=== PATIENT | male | born 1940 | race Caucasian/White ===

== ENCOUNTER → 2017-03-19 | Day surgery (SDC) | payer MEDICARE ==
[~2017-03-19] VITALS: Ht 175.3 cm; Wt 104.3 kg
[~2017-03-19] MED LIST: ALBU18HF INH; ASCO100089 PO; ASCO1500 PO; CHOL200020 PO; CHOL200025 PO; CLAR10T PO; COU5 PO; FLONASE; FLUT16SP NS; FURO-3 PO; FURO40TA4 PO; GARL1000 PO; GARL10002 PO; LORA10CA9 PO; Lactated Ringer's 1,000 ML IV ONE; Lactated Ringer's 1,000 ML IV SCH; METO-272 PO; MOME13HF2 IH; MULT-1007 PO; MULT-544 PO; MetoCLOpramide 5 mg/mL 2 mL Inj IVPUSH PRN; NIAC500SA PO; OMEG100020 PO; Ondansetron 2 mg/mL 2 mL Inj IVPUSH PRN; PRAV80TA2 PO; PRV40T PO; Propofol 10,000 mCg/mL 20 mL Inj ONE; SILD50TA PO; TAMS0.4C29 PO; WARF5TAB7 PO; [UNRECOGNIZED DRUG - CODE] PO
[2017-03-19 13:10] VITALS: BP 164/95; PULSE 73; O2SAT 99
[2017-03-19 13:39] VITALS: BP 113/79; PULSE 62; RESP 14; O2SAT 97
[2017-03-19 13:54] VITALS: BP 122/79; PULSE 72; RESP 14; O2SAT 97
--- NOTE | 2017-03-19 14:06 | ENDO ---
[address] [address] ENDOSCOPY PROCEDURE PATIENT: AMIRA BLAKE : 1940 MR#: [id number] ADMIT: 03/19/2017 JOB ID: [id number] DATE OF SERVICE: 03/19/2017 PROCEDURE: Colonoscopy. PREOPERATIVE DIAGNOSIS(ES): History of tubular adenoma polyps. POSTOPERATIVE DIAGNOSIS(ES): 1. Pandiverticulosis seen in sigmoid, descending, transverse and ascending colon. 2. Moderate internal hemorrhoids. ANESTHESIA: Monitored anesthesia care. COMPLICATIONS: None. BLOOD LOSS: Minimal. DESCRIPTION OF PROCEDURE: After risks and benefits explained to the patient, informed consent was obtained. After anesthesia administered, colonoscope was inserted from the rectum to cecum. Mucosa carefully examined. Prep of the patient was fair. After the procedure was done, the scope withdrawn and procedure terminated. FINDINGS: Upon inspection of the anus, no masses, hemorrhoids, ulcers, or fissures had were seen. Throughout the entire examination, there were no polyps, masses, or lesions. There was scattered diverticulosis seen throughout the entire colon, seen in sigmoid, transverse, descending and ascending colon. Retroflexion showed moderate internal hemorrhoids. IMPRESSION: 1. Moderate internal hemorrhoids. 2. Pandiverticulosis throughout the entire colon. RECOMMENDATIONS: 1. High-fiber diet. 2. Repeat colonoscopy in five years given history of tubular adenoma polyps. 3. Follow up in GI clinic as needed.
--- NOTE | 2017-03-19 16:26 | PCM.ANEP1 ---
Post Anesthesia PACU Phase 1 Assessment Vital Signs Vital Signs Date Time Temp Pulse Resp B/P Pulse Ox O2 Delivery O2 Flow Rate FiO2 03/19/17 13:54 72 14 122/79 97 Room Air 03/19/17 13:39 62 14 113/79 97 Room Air 03/19/17 13:10 73 164/95 99 Room Air Anesthetic Administered: MAC Level of Alertness: Awake, talking VERDUGO's with Equal Strength: Yes Pain: No Nausea or Vomiting: No CV Function & Hydration Stable: No Airway Device: Oxygen Delivery: Room Air Lungs: Clear to Auscultation, Normal Air Movement Dermatome Level: Full Sensation PACU Phase 2 Assessment Complications: No Follow up Care: N/A Patient Instructions Provided: N/A Willian Jean Baptiste MD Mar 19, 2017 16:26
--- NOTE | 2017-03-19 16:26 | PCM.HPANE ---
Patient Data Surgeon Admitting Provider: Attending Provider:Dwayne Romero MD Primary Care Physician:Milady Chandler MD Other Provider:Camilo Lopez Anesthesia Reason for Visit Adenomatous Polyp Of Colon Ht/WT & BMI Height (Feet): 5 Height (Inches): 9 Weight (Kilograms): 104.33 Body Mass Index 34.00 Allergies Coded Allergies: Penicillins (Verified Allergy, Severe, Anaphylaxis, 11/13/12) "SWELLED ALL OVER AND RASH" zinc oxide (Verified Allergy, Unknown, 03/18/17) Past Anesthesia History Anesthesia History: Denies:: Abnormal Airway, Anesthesia Reactions, Difficult Intubation, Fam Anesthesia Reaction, Fam Malignant Hypertherm, Malignant Hyperthermia Diabetes History Hx Diabetes?: No MRSA MRSA: No Medications Blood Thinner: Coumadin Last Dose Blood Thinner: Mar 15, 2017 Home Meds Incl Beta Mikaela: Yes Date Beta Mikaela Taken: Mar 19, 2017 Time Beta Mikaela Taken: 0800 Reported Medications Warfarin Sodium 5 Mg Tablet5 Mg PO DAILY 30 Days Ref 0 03/19/17 Cholecalciferol (Vitamin D3) (Vitamin D3)2,000 Unit Tablet2,000 Unit PO BID 03/19/17 Ascorbic Acid (Vitamin C)1,500 Mg Tablet.er1,000 Mg PO DAILY 03/19/17 Pravastatin 80 Mg Jjwdip70 Mg PO HS Ref 0 03/19/17 Multivitamin (Men's Multi-Vitamin)1 Each Tablet1 Each PO d 03/19/17 Loratadine 10 Mg Wlgmpvh47 Mg PO DAILY 03/19/17 Garlic 1,000 Mg Capsule1,000 Mg PO DAILY 03/19/17 Furosemide 40 Mg Tqftgf73 Mg PO BID 03/19/17 Fluticasone Propionate (Fluticasone Propionate Nasal)16 Gm [place].susp1 [place] NS BID #16 GM Ref 0 03/19/17 Albuterol Sulfate (Ventolin HFA Inhaler)200 Puff/18 Gm Inhaler1 Puff INH Q4 PRN For Wheezing #1 INHALER Ref 0 03/18/17 Tamsulosin ER 0.4 Mg Cap.er.24h0.8 Mg PO DAILY Ref 0 03/18/17 Metoprolol Succinate ER 50 Mg Tab.er.24h50 Mg PO BID Ref 0 03/18/17 Mometasone/Formoterol (Dulera 100 Mcg/5 Mcg Inhaler)13 Gm Hfa.aer.ad2 Puffs IH BID 7/24/17 Discontinued Reported Medications Cholecalciferol (D3)-Expunged Drug, Do Not Re (Vitamin O-0-Axnpdhou Drug, Do Not Renew!)2,000 Unit Capsule2,000 Unit PO DAILY 11/12/12 Ascorbic Acid-Expunged Drug, Do Not Renew! (Vitamin C-Expunged Drug, Do Not Renew!)1,000 Mg Tab.chew1,000 Mg PO BID 11/12/12 Sildenafil Citrate-Expunged Drug, Do Not Phill (Viagra-Expunged Drug, Do Not Renew!)50 Mg Ztmzie23 Mg PO PRN 1-3 TABLETS PRN 11/12/12 Verapamil-Expunged Drug, Do Not Renew! 240 Mg Tablet.er240 Mg PO DAILY 11/12/12 Pravastatin-Expunged Drug, Do Not Renew! (Pravachol-Expunged Drug, Do Not Renew! )40 Mg Kjfzdv02 Mg PO DAILY 11/12/12 Niacin-Expunged Drug, Do Not Renew! (Niaspan-Expunged Drug, Do Not Renew!)500 Mg Tablet.er500 Mg PO DAILY #30 TAB TAKE WITH FOOD 11/12/12 Multivitamin (Multi-Vitamin Daily)1 Each Tablet1 Each PO DAILY 11/12/12 Loratadine-Expunged Drug, Do Not Renew! 10 Mg Kvlagm80 Mg PO DAILY PRN 11/12/12 Garlic (Garlic Oil)1,000 Mg Capsule1,000 Mg PO DAILY 11/12/12 Furosemide-Expunged Drug, Do Not Renew! 40 Mg Lhpdzj21 Mg PO DIRECTED #30 TAB 2-3 TABLETS DAILY 11/12/12 Fluticasone-Expunged Drug, Do Not Renew! (Flonase-Expunged Drug, Do Not Renew!) 120 Sprays/16 Gm Aero1 Spr NA DAILY #16 GM IN EACH NOSTRIL 11/12/12 [place]-3/Dha/Epa/Fish Oil-Expunged Drug, Do No (Fish Oil 1,000 Mg-Expunged Drug, Do Not Renew)1 Each Capsule.dr1 Each PO DAILY 11/12/12 Warfarin Inactive Drug Do Not Use (Coumadin Inactive Drug Do Not Use)5 Mg Tablet5 Mg PO DIRECTED #30 TAB 2.5MG ON Tuesdays11/12/12 Furosemide-Expunged Drug, Do Not Renew! 40 Mg Bgkqpd51 Mg PO PM/PRN #30 TAB 40 MG DAILY 11/12/12 Albuterol-Expunged Drug, Do Not Renew! (ProAir HFA-Expunged Drug, Do Not Renew!) 200 Puff/8.5 Gm Hfa.aer.ad8.5 Gm INH 11/12/12 Flutic/Salmet-Expunged Drug, Do Not Renew! (Advair 250/50-Expunged Drug, Do Not Renew!)250 Mcg/50 Mcg Dsan978 Mcg IH 11/12/12 History History of ENT Problems?: No HEENT History: Positive for:: Hearing Problem Denies:: Abnormal Airway Cataracts Difficult Intubation Dysphagia Glaucoma Sinus Problem TMJ Denture Type: None Partial- Lower Teeth Condition: Within Normal Limits Missing Teeth Hx of Heart Problems?: Yes Cardiovascular History: Positive for:: Atrial Fibrillation Hypertension Pacemaker Denies:: AICD Abdominal Aortic Aneurism Cardiac Surgery Chest Pain Congestive Heart Failure Coronary Artery Disease Edema Heart Murmur Irregular Heartbeat Peripheral Vascular Rheumatic Fever Thrombophlebitis Valvular Heart Disease Hx of Respiratory Problem?: Yes Respiratory History: Positive for:: Asthma (ADVAIR) Denies:: COPD Chest Surgery Cough Dyspnea Emphysema Hemoptysis Oxygen Administration Pneumonia Pulmonary Embolism Tuberculosis Use of C-PAP Machine Use of Inhalers / NEBS Hx Neurologic Problems?: No Neurological History: Denies:: Alzheimer's Disease CVA Dementia Dizziness Headaches Multiple Sclerosis Parkinson's Disease Peripheral Neuropathy Seizures TIA Hx of GI Problems?: Yes Gastrointestinal History: Denies:: Cirrhosis Diverticulitis Gall Bladder Disease Gastroesphageal Reflux Gastrointestinal Bleeding Heartburn Hepatitis Hiatal Hernia Liver Disease Rectal Bleeding Hx of Problems?: No Genitourinary History: Denies:: HX of Hemodialysis Kidney Stones Urinary Tract Infection HX of Peritoneal Dialysis: No Male Hx: Denies:: Prostate Problems Scrotal Mass Testicular Surgery Skin History: Denies:: History Skin Disorders? Pressure Ulcers Hx Musculoskeletal Problems?: No Musculoskeletal History: Denies:: Back Injury Degenerative Joint Fibromyalgia Joint Replacement Musculoskeletal Trauma Myasthenia Gravis Osteoarthritis Rheumatoid Arthritis Systemic Lupus Hx of Psycho/Social Problems?: No Psycho Social History: Denies:: Anxiety Bipolar Disorder Hx Depression Suicide Attempt Hx Surgeries?: No (PACEMAKER, SKIN CA, ) Hx Any Other Health Problems?: No Other History: Denies:: Cancer Endocrine Disease Hospitalization Thyroid Disease History Blood Transfusions: Denies:: Accept Blood Products? Blood Transfuse Reaction Blood Transfusions Hx Diabetes: No Hx Alcohol Use: Yes (RARELY) Stop/Bang Treated for Sleep Apnea?: No Do You Have a CPAP Machine?: No S-Snoring: Do You Snore Loudly: Yes T-Tired: feel tired, fatigued: No O-Obsered: Observed not breath: No P-Blood Pressure: treated: Yes B- Body Mass Index > 35 kg/m2: Yes A- Age over 50: Yes N- Neck Large Circumference: Yes G- Gender Male: Yes CLAIRE Total Score: 6 CLAIRE Category 2: Yes Risk Assessment Category Category 1A: Patient has history of documented sleep apnea, and HAS NOT received any narcotic, sedative or anesthesia administration during this stay. Category 1B: Patient has history of documented sleep apnea, and HAS received any narcotic , sedative or anesthesia administration during this stay Category 2: Patient has SUSPECTED Obstructive Sleep Apnea, and HAS received any narcotic , sedative or anesthesia administration during this stay. Category 3: Patient has SUSPECTED Obstructive Sleep Apnea and HAS NOT received narcotic, sedative or anesthesia administration during this stay. Category 4: Outpatient in Procedural Areas with known sleep apnea or who screen positive for High Risk via the STOP/BANG questionnaire. Exam Exam Vital Signs Vital Signs Date Time Temp Pulse Resp B/P Pulse Ox O2 Delivery O2 Flow Rate FiO2 03/19/17 13:10 73 164/95 99 Room Air General Appearance: Alert, Oriented X3, Cooperative, No Acute Distress HEENT/AIRWAY: MP 2 Lungs: Clear to Auscultation, Normal Air Movement Heart: Exam Unremarkable, Regular Rate/Rhythm, No Murmurs/Rubs/Gallops Plan Impression Patient chart reviewed, patient interviewed and anesthestic plan with risks, benefits, and alternatives discussed, and informed consent obtained. NPO per Anesth. Guidelines: Yes ASA Physical Status: ASA3 Severe Disease (A fib) Anesthetic Plan: MAC Bene/Risks/Altern/Consents: Yes HP Complete Prior to Induction: Yes Willian Jean Baptiste MD Mar 19, 2017 13:19
== END | disposition home or self-care (01) ==
LOC: END 00:25
PROVIDERS: ATTEND Internal Medicine Gastroenterology
DX: Z12.11 Encounter for screening for malignant neoplasm of colon (principal); K57.30 Diverticulosis of large intestine without perforation or abscess without bleeding; K64.8 Other hemorrhoids; I10 Essential (primary) hypertension; J45.909 Unspecified asthma, uncomplicated; I48.2 Chronic atrial fibrillation; E78.2 Mixed hyperlipidemia; I49.5 Sick sinus syndrome; Z95.0 Presence of cardiac pacemaker; Z79.51 Long term (current) use of inhaled steroids; Z79.01 Long term (current) use of anticoagulants
CPT/HCPCS: G0121; J7120